=== PATIENT | female | born 1935 | race Caucasian/White ===

== ENCOUNTER 2016-08-23 12:38 | Emergency (ER) | payer OTHER ==
[~2016-08-23] VITALS: Ht 165.1 cm; Wt 64.1 kg
[~2016-08-23 12:38] MED LIST: AMIODARONE HCL100 MG PO; AMIODARONE HCL200 MG PO; ARTIFICIAL TEAR15 M1 BOTH EYES; ASPIR 8181 M1 PO; ASPIRIN E.C.81 M1 PO; ASPIRIN81 M1 PO; BENAZEPRIL HCL20 MG PO; BENZONATATE200 MG PO; BETAPACE,SORINE80 M1 PO; CEFDINIR300 MG PO; COLACE100 MG PO; COUMADIN; COUMADIN,JANTOVE5 MG PO; COUMADIN,JANTOVE6 MG PO; COUMADIN3 MG PO; COUMADIN4 MG PO; COUMADIN5 MG PO; DRISDOL50000 UNIT PO; HYDROCHLOROTHIA25 MG PO; LEVOTHYROXINE112 MCG PO; LOPRESSOR25 MG PO; LOTENSIN20 M1 PO; LOTENSIN20 MG PO; LOTENSIN40 MG PO; Levothroid,Synthroid PO; METOPROLOL SUCC25 MG PO; METOPROLOL TART25 MG PO; MIRALAX17 GM PO; MUCINEX PO; MUCINEX600 MG PO; MULTIVITAMIN1 EAC2 PO; NITROQUICK0.4 MG SL; NITROSTAT0.4 MG SL; PRAVACHOL80 MG PO; PRAVASTATIN SOD80 MG PO; PRESERVISIO1 CAPSULE PO; PRESERVISION T1 EACH PO; PROTONIX40 MG PO; Preservision AREDS S PO; PriLOSEC PO; REFRESH LI300 DROP/1 BOTH EYES; SODIUM CHLORID3.5 GM BOTH EYES; SYNTHROID88 MCG PO; Toprol XL PO; VITAMIN D250000 UNIT PO; VITAMIN D50000 UNI1 PO; WARFARIN SODIUM5 MG PO; ZOLOFT50 MG PO; [UNRECOGNIZED DRUG - CODE] PO
[2016-08-23 13:29] LABS: HEMATOCRIT 39.7 % (36.0-46.0); MCH 28.8 PG (29.0-34.0); MCHC 32.2 G/DL (30.0-36.0); MCV 89.4 FL (83-99); MEAN PLAT.VOLUME 10.1 uM^3 (9.5-12.4); PLATELET COUNT 226 K/uL (156-360); RBC DIS.WIDTH-CV 15.1 % (11.8-14.6); RBC DIS.WIDTH-SD 50.1 % (39-53); RED BLOOD COUNT 4.44 M/uL (3.80-5.20); WHITE BLOOD COUNT 7.5 K/uL (4.1-10.2)
[2016-08-23 13:38] LABS: CHLORIDE 104 mEq/L (99-109); POTASSIUM 3.7 mEq/L (3.7-5.4); SODIUM 138 mEq/L (136-147)
[2016-08-23 13:39] LABS: GLUCOSE 90 mg/dL (70-99)
[2016-08-23 13:41] LABS: ANION GAP 11 MEQ/L (2-14)
[2016-08-23 13:43] LABS: GFR ESTIMATE (CALCULATED) > 59 mL/min/
[2016-08-23 13:44] LABS: UREA NITROGEN (BUN) 13 mg/dL (9-23)
[2016-08-23] MEDS ORDERED: ZOFRAN4 MG PO (16:10)
[2016-08-23 16:16] VITALS: BP 187/79
== END 2016-08-23 16:17 | disposition home or self-care (01) ==
LOC: EME 12:38
DX: H53.9 Unspecified visual disturbance (principal); R11.0 Nausea; E78.5 Hyperlipidemia, unspecified; I10 Essential (primary) hypertension; Z85.850 Personal history of malignant neoplasm of thyroid; Z88.6 Allergy status to analgesic agent; Z87.891 Personal history of nicotine dependence
CPT/HCPCS: 71020; 80048; 85027; 93005; 99281; 99284

== ENCOUNTER 2016-08-27 10:08 | Emergency (ER) | payer OTHER ==
[~2016-08-27] VITALS: Ht 165.1 cm; Wt 63.6 kg
[~2016-08-27 10:08] MED LIST changes: +ZOFRAN4 MG PO
[2016-08-27 11:15] LABS: EOSINOPHIL (%) 0.7 % (0-5); EOSINOPHIL COUNT 0.1 K/uL (0-0.3); HEMATOCRIT 40.1 % (36.0-46.0); IMMATURE GRANULOCYTE (%) 0.5 % (0.0-0.7); INSTRUMENT ABS NEUTROPHIL CT 7.1 K/uL; MCH 28.9 PG (29.0-34.0); MCHC 32.2 G/DL (30.0-36.0); MCV 89.9 FL (83-99); MEAN PLAT.VOLUME 9.6 uM^3 (9.5-12.4); MONOCYTE (%) 6.3 % (3-12); MONOCYTE COUNT 0.6 K/uL (0-0.8); NEUTROPHIL (%) 80.6 % (45-76); NEUTROPHIL COUNT 7.1 K/uL (1.8-6.4); PLATELET COUNT 229 K/uL (156-360); RBC DIS.WIDTH-CV 15.1 % (11.8-14.6); RBC DIS.WIDTH-SD 50.4 % (39-53); RED BLOOD COUNT 4.46 M/uL (3.80-5.20); WHITE BLOOD COUNT 8.9 K/uL (4.1-10.2)
[2016-08-27 11:25] LABS: INTER. NORMALIZED RATIO 1.1; PTT 30.3 (25-32)
[2016-08-27 11:28] LABS: CHLORIDE 104 mEq/L (99-109); SODIUM 139 mEq/L (136-147)
[2016-08-27 11:30] LABS: GLUCOSE 94 mg/dL (70-99)
[2016-08-27 11:31] LABS: ANION GAP 10 MEQ/L (2-14)
[2016-08-27 11:32] LABS: TOTAL BILIRUBIN 0.6 mg/dL (0.0-1.0)
[2016-08-27 11:34] LABS: ALKALINE PHOSPHATASE 52 IU/L (3-129); GFR ESTIMATE (CALCULATED) > 59 mL/min/
[2016-08-27 11:35] LABS: UREA NITROGEN (BUN) 14 mg/dL (9-23)
[2016-08-27 11:38] LABS: TROP-I INTERPRETATION NEGATIVE; TROPONIN-I 0.01 ng/mL (0.0-0.30)
[2016-08-27 11:51] LABS: ADD MIUA? YES; BILIRUBIN NEGATIVE; BLOOD SMALL; COLOR STRAW ((YELLOW)); GLUCOSE (STRIP) NEGATIVE; KETONES NEGATIVE; LEUKOCYTES NEGATIVE; NITRITE NEGATIVE; PROTEIN (STRIP) NEGATIVE; UROBILINOGEN 0.2 MG/DL (0.2-1.0)
[2016-08-27 11:53] LABS: BACTERIA NONE SEEN /HPF; EPITHELIAL CELLS RARE /HPF; MUCUS TRACE /LPF; RED BLOOD CELLS 0-5 /HPF (0-5); UCUL ADDED? NO; WHITE BLOOD CELLS 0-5 /HPF (0-5)
[2016-08-27 12:30] LABS: D-DIMER ELISA 0.27 mg/L FEU (< 0.57)
[2016-08-27 13:41] LABS: TROP-I INTERPRETATION NEGATIVE; TROPONIN-I 0.02 ng/mL (0.0-0.30)
[2016-08-27] MEDS ORDERED: XANAX0.5 MG PO (14:11)
[2016-08-27 14:53] VITALS: BP 149/66
== END 2016-08-27 14:54 | disposition home or self-care (01) ==
LOC: EME 10:08
PROVIDERS: Emergency Medicine
DX: R42 Dizziness and giddiness (principal); F41.9 Anxiety disorder, unspecified; I10 Essential (primary) hypertension; Z87.891 Personal history of nicotine dependence; E78.5 Hyperlipidemia, unspecified; K21.9 Gastro-esophageal reflux disease without esophagitis
CPT/HCPCS: 71010; 80053; 81003; 83880; 84484; 85025; 85379; 85610; 85730; 93005; 99281; 99284

== ENCOUNTER 2017-11-19 11:27 | Day surgery (SDC) | payer OTHER ==
[~2017-11-19] VITALS: Ht 166.4 cm; Wt 57.0 kg
[~2017-11-19 11:27] MED LIST changes: +ELIQUIS2.5 MG PO; +ERGOCALCIF50000 UNIT PO; +LEVETIRACETAM250 MG PO; +LEVOTHYROXINE100 MCG PO; +REFRESH TEARS15 ML BOTH EYES; +SOTALOL120 MG PO; +TRAMADOL HCL50 MG PO; -VITAMIN D250000 UNIT PO; +XANAX0.5 MG PO
== END 2017-11-19 13:50 | disposition home or self-care (01) ==
LOC: CATH 11:27
PROC: 5A2204Z Restoration of Cardiac Rhythm, Single (ICD-10-PCS; principal; 2017-11-19)
DX: I48.1 Persistent atrial fibrillation (principal); I49.5 Sick sinus syndrome; I47.1 Supraventricular tachycardia; I25.10 Atherosclerotic heart disease of native coronary artery without angina pectoris; I10 Essential (primary) hypertension; I65.23 Occlusion and stenosis of bilateral carotid arteries; E78.2 Mixed hyperlipidemia
CPT/HCPCS: 93005